=== PATIENT | female | born 1975 | race Caucasian/White ===

== ENCOUNTER → 2024-10-01 | Day surgery (SDC) | payer OTHER ==
--- NOTE | 2024-10-01 11:22 | RAD REPORT ---
EXAM DESCRIPTION: S/P CLIP PLACEMENT UNI COMPARISON: Procedural images of ultrasound-guided core biopsy of the same day. TECHNIQUE: Full field CC and MLO views of the right breast were obtained utilizing digital breast 3D tomosynthesis technique. Computer-aided detection was utilized. FINDINGS: Postbiopsy changes are present, with postbiopsy clip in satisfactory location in relation t o the inferior slightly lateral target lesion. No hematoma. IMPRESSION: Postprocedural mammogram for clip localization as above. Density: B: There are scattered areas of fibroglandular density. *A negative x-ray report should not delay biopsy if a dominant or clinically suspicious mass is prese nt. 4.8% of cancers are not identified by x-ray. *A negative report may reinforce clinical impression. *Adenosis and dense breasts may obscure an underlying neoplasm. *False positive reports average 6-10%.
--- NOTE | 2024-10-01 14:07 | RAD REPORT ---
Exam: US Breast Vac Assist BX w/US Guid CLINICAL HISTORY: N TECHNIQUE: The risks, benefits and alternatives to procedure were explained to the patient and informed consent was obtained. Prior ultrasound was reviewed. Timeout procedure was performed. Skin was prepped and draped in the usual sterile fashion. Skin and deeper tissues were anesthetized w ith lidocaine. Under sonographic guidance three 12-gauge vacuum-assisted core biopsies of the right inferior breast mass were obtained. The specimens were sent to pathology for analysis. Subsequently a localizing clip was placed into the mass. Pressure was applied to the biopsy site. Patient experienced no immediate complication. IMPRESSION: Technically successful ultrasound-guided core biopsy of the right breast.
== END ==
LOC: DS 09:20
PROVIDERS: ATTEND Nurse Practitioner Women's Health
PROC: 0H9T3ZX Drainage of Right Breast, Percutaneous Approach, Diagnostic (ICD-10-PCS; principal; 2024-10-01)
DX: C50.911 Malignant neoplasm of unspecified site of right female breast (principal); N63.10 Unspecified lump in the right breast, unspecified quadrant; R92.8 Other abnormal and inconclusive findings on diagnostic imaging of breast; Z17.0 Estrogen receptor positive status [ER+]; Z17.21 Progesterone receptor positive status; Z17.32 Human epidermal growth factor receptor 2 negative status
CPT/HCPCS: 76942; 77065; 88305